=== PATIENT | female | born 1970 | race Caucasian/White ===

== ENCOUNTER → 2018-02-07 | Outpatient (CLI) | payer OTHER ==
[~2018-02-07] MED LIST: ALBUAER INH; CALCTAB5 PO; CETI10TA84 PO; CYAN100020 PO; LORA-741 PO; MAGN250T22 PO; PARO1TAB27 PO; RXC5 PO; SUMA50TA15 PO; ZINC PO
== END | disposition home or self-care (01) ==
LOC: C.PAPS 10:08
PROVIDERS: ATTEND Obstetrics & Gynecology
DX: Z12.4 Encounter for screening for malignant neoplasm of cervix (principal)